=== PATIENT | female | born 1980 | race Caucasian/White ===

== ENCOUNTER 2020-06-11 08:25 | Emergency (ER) | payer BC ==
--- NOTE | 2020-06-11 08:34 | EDM.PDOC ---
ED HPI GENERAL MEDICAL PROBLEM - General Chief Complaint: Flank Pain Stated Complaint: LOW ABDOMINAL AND BACK PAIN Time Seen by Provider: 06/11/20 08:33 - History of Present Illness INITIAL COMMENTS - FREE TEXT/NARRATIVE: 39-year-old female presents the emergency room with abdominal pain. This pain started 45 to 50 minutes prior to arrival. It was very sudden onset she had some brief nausea with this but no vomiting. It is strictly on the right side started out in her back moved into her abdomen now radiating into her groin. She denies any fevers or chills. No problems with constipation or diarrhea. She has had a cholecystectomy and a tummy tuck in the past. She denies knowing she is she has a Mirena and her has had a vasectomy. Right Flank Pain Score (Numeric/FACES): 8 - Related Data Allergies Allergy/AdvReac Type Severity Reaction Status Date / Time No Known Allergies Allergy Verified 06/11/20 08:33 Home Meds: Home Meds Phentermine HCl 1 tab PO DAILY 09/17/19 [History] levonorgestreL [Mirena] 1 device VAG ONETIME 09/17/19 [History] L.acidoph,Paracasei, B.lactis [Probiotic] 1 cap PO DAILY 06/11/20 [History] Multivitamin [Multivitamins] 1 cap PO DAILY 06/11/20 [History] cephALEXin [Cephalexin] 500 mg PO Q8H #20 capsule 06/11/20 [Rx] Past Medical History HEENT History: Reports: None Cardiovascular History: Reports: None Respiratory History: Reports: None Gastrointestinal History: Reports: Other (See Below) Other Gastrointestinal History: occasional heartburn Genitourinary History: Reports: None Musculoskeletal History: Reports: Fracture Other Musculoskeletal History: hx fx ankle Neurological History: Reports: Migraines, Other (See Below) Other Neuro History: migraines in the past Psychiatric History: Reports: None Endocrine/Metabolic History: Reports: Obesity/BMI 30+ Hematologic History: Reports: None Immunologic History: Reports: None Oncologic (Cancer) History: Reports: None Dermatologic History: Reports: None - Past Surgical History Head Surgeries/Procedures: Reports: None HEENT Surgical History: Reports: None Cardiovascular Surgical History: Reports: None Respiratory Surgical History: Reports: None GI Surgical History: Reports: Cholecystectomy Female Surgical History: Reports: Breast Reduction Endocrine Surgical History: Reports: None Neurological Surgical History: Reports: None Musculoskeletal Surgical History: Reports: None Oncologic Surgical History: Reports: None Dermatological Surgical History: Reports: Plastic Surgical Reconstruction/Repair ED ROS GENERAL - Review of Systems Review Of Systems: See Below Constitutional: Reports: No Symptoms HEENT: Reports: No Symptoms Respiratory: Reports: No Symptoms Cardiovascular: Reports: No Symptoms Endocrine: Reports: No Symptoms GI/Abdominal: Reports: Abdominal Pain, Nausea. Denies: Constipation, Diarrhea, Vomiting : Reports: Flank Pain. Denies: Frequency, Hematuria, Urgency, Urinary Retention Musculoskeletal: Reports: Back Pain (Associated with this present illness) Neurological: Reports: No Symptoms ED EXAM, GI/ABD - Physical Exam Exam: See Below Exam Limited By: No Limitations General Appearance: Moderate Distress (From pain) Head: Atraumatic, Normocephalic Neck: Normal Inspection, Supple, Non-Tender, Full Range of Motion Respiratory/Chest: No Respiratory Distress, Lungs Clear, Normal Breath Sounds Cardiovascular: Regular Rate, Rhythm, No Edema, No Murmur GI/Abdominal Exam: Normal Bowel Sounds, Other (No left-sided abdominal discomfort no rebound or guarding palpation on the right side does not make the pain any worse but she has significant right sided mid to lower abdominal pain at this point.) Back Exam: Normal Inspection. No: CVA Tenderness (L), CVA Tenderness (R) Neurological: Alert, Oriented, Normal Cognition Course - Vital Signs Last Recorded V/S: Last Vital Signs Temp 36.2 C 06/11/20 08:30 Pulse 82 06/11/20 08:30 Resp 18 06/11/20 08:30 BP 139/91 H 06/11/20 08:30 Pulse Ox 99 06/11/20 08:30 - Orders/Labs/Meds Orders: Active Orders 24 hr Category Date Time Status CALCULI, URINARY Stat Lab 06/11/20 11:44 Ordered CULTURE URINE [RM] Stat Lab 06/11/20 08:30 Received Lactated Ringers [Ringers, Lactated] 1,000 ml Med 06/11/20 09:00 Active IV ASDIRECTED Medication Orders Lactated Ringer's (Ringers, Lactated) 1,000 mls @ 125 mls/hr IV ASDIRECTED JOSE Last Admin: 06/11/20 08:53 Dose: 125 mls/hr Documented by: DAVID Labs: Laboratory Tests 06/11/20 06/11/20 06/11/20 Range/Units 08:30 08:43 08:43 WBC 8.02 (3.98-10.04) K/mm3 RBC 5.19 (3.98-5.22) M/mm3 Hgb 15.5 (11.2-15.7) gm/dl Hct 45.3 H (34.1-44.9) % MCV 87.3 (79.4-94.8) fl MCH 29.9 (25.6-32.2) pg MCHC 34.2 (32.2-35.5) g/dl RDW Std Deviation 41.8 (36.4-46.3) fL Plt Count 386 H (182-369) K/mm3 MPV 9.7 (9.4-12.3) fl Neut % (Auto) 57.1 (34.0-71.1) % Lymph % (Auto) 29.1 (19.3-51.7) % [place] % (Auto) 6.5 (4.7-12.5) % Eos % (Auto) 6.0 H (0.7-5.8) Baso % (Auto) 1.2 (0.1-1.2) % Neut # (Auto) 4.58 (1.56-6.13) K/mm3 Lymph # (Auto) 2.33 (1.18-3.74) K/mm3 [place] # (Auto) 0.52 H (0.24-0.36) K/mm3 Eos # (Auto) 0.48 H (0.04-0.36) K/mm3 Baso # (Auto) 0.10 H (0.01-0.08) K/mm3 Sodium 137 (136-145) mEq/L Potassium 3.8 (3.5-5.1) mEq/L Chloride 101 (98-107) mEq/L Carbon Dioxide 24 (21-32) mEq/L Anion Gap 15.8 H (5-15) BUN 13 (7-18) mg/dL Creatinine 1.1 H (0.55-1.02) mg/dL Est Cr Clr Drug Dosing 53.77 mL/min Estimated GFR (MDRD) 55 (>60) mL/min BUN/Creatinine Ratio 11.8 L (14-18) Glucose 112 H (74-106) mg/dL Calcium 9.2 (8.5-10.1) mg/dL Total Bilirubin 0.9 (0.2-1.0) mg/dL AST 24 (15-37) U/L ALT 41 (14-59) U/L Alkaline Phosphatase 56 (46-116) U/L Total Protein 8.1 (6.4-8.2) g/dl Albumin 4.3 (3.4-5.0) g/dl Globulin 3.8 gm/dL Albumin/Globulin Ratio 1.1 (1-2) HCG, Qual (NEGATIVE) Urine Color Yellow (Yellow) Urine Appearance Clear (Clear) Urine pH 5.5 (5.0-8.0) Ur Specific [place] > or = 1.030 (1.005-1.030) Urine Protein 1+ H (Negative) Urine Glucose (UA) Negative (Negative) Urine Ketones 1+ H (Negative) Urine Occult Blood 2+ H (Negative) Urine Nitrite Negative (Negative) Urine Bilirubin 1+ H (Negative) Urine Urobilinogen 1.0 (0.2-1.0) Ur Leukocyte Esterase 1+ H (Negative) Urine RBC 5-10 H (0-5) /hpf Urine WBC 10-20 H (0-5) /hpf Ur Squamous Epith Cells 5-10 H (0-5) /hpf Urine Bacteria Many H (FEW) /hpf Urine Mucus Few (FEW) /hpf 06/11/20 06/11/20 Range/Units 08:43 10:09 WBC (3.98-10.04) K/mm3 RBC (3.98-5.22) M/mm3 Hgb (11.2-15.7) gm/dl Hct (34.1-44.9) % MCV (79.4-94.8) fl MCH (25.6-32.2) pg MCHC (32.2-35.5) g/dl RDW Std Deviation (36.4-46.3) fL Plt Count (182-369) K/mm3 MPV (9.4-12.3) fl Neut % (Auto) (34.0-71.1) % Lymph % (Auto) (19.3-51.7) % [place] % (Auto) (4.7-12.5) % Eos % (Auto) (0.7-5.8) Baso % (Auto) (0.1-1.2) % Neut # (Auto) (1.56-6.13) K/mm3 Lymph # (Auto) (1.18-3.74) K/mm3 [place] # (Auto) (0.24-0.36) K/mm3 Eos # (Auto) (0.04-0.36) K/mm3 Baso # (Auto) (0.01-0.08) K/mm3 Sodium (136-145) mEq/L Potassium (3.5-5.1) mEq/L Chloride (98-107) mEq/L Carbon Dioxide (21-32) mEq/L Anion Gap (5-15) BUN (7-18) mg/dL Creatinine (0.55-1.02) mg/dL Est Cr Clr Drug Dosing mL/min Estimated GFR (MDRD) (>60) mL/min BUN/Creatinine Ratio (14-18) Glucose (74-106) mg/dL Calcium (8.5-10.1) mg/dL Total Bilirubin (0.2-1.0) mg/dL AST (15-37) U/L ALT (14-59) U/L Alkaline Phosphatase (46-116) U/L Total Protein (6.4-8.2) g/dl Albumin (3.4-5.0) g/dl Globulin gm/dL Albumin/Globulin Ratio (1-2) HCG, Qual Negative (NEGATIVE) Urine Color Yellow (Yellow) Urine Appearance Clear (Clear) Urine pH 6.0 (5.0-8.0) Ur Specific [place] 1.015 (1.005-1.030) Urine Protein Negative (Negative) Urine Glucose (UA) Negative (Negative) Urine Ketones Trace H (Negative) Urine Occult Blood 3+ H (Negative) Urine Nitrite Negative (Negative) Urine Bilirubin Negative (Negative) Urine Urobilinogen 1.0 (0.2-1.0) Ur Leukocyte Esterase Trace H (Negative) Urine RBC 30-40 H (0-5) /hpf Urine WBC 10-20 H (0-5) /hpf Ur Squamous Epith Cells 5-10 H (0-5) /hpf Urine Bacteria Moderate H (FEW) /hpf Urine Mucus Few (FEW) /hpf Meds: Medications Generic Name Dose Route Start Last Admin Trade Name Marc PRN Reason Stop Dose Admin Lactated Ringer's 1,000 mls @ 125 mls/hr 06/11/20 09:00 06/11/20 08:53 Ringers, Lactated IV 125 mls/hr ASDIRECTED JOSE Administration Discontinued Medications Generic Name Dose Route Start Last Admin Trade Name Marc PRN Reason Stop Dose Admin Fentanyl 100 mcg 06/11/20 08:47 06/11/20 09:57 Sublimaze IVPUSH 06/11/20 08:48 50 mcg ONETIME ONE Administration Ondansetron HCl 4 mg 06/11/20 08:47 06/11/20 08:52 Zofran IVPUSH 06/11/20 08:48 4 mg ONETIME ONE Administration - Re-Assessments/Exams Free Text/Narrative Re-Assessment/Exam: 06/11/20 09:57 Mildly dehydrated on labs. However we will not bolus fluids at this time as this might make the pain worse and that we will advise her to drink lots of fluids as an outpatient. Urinalysis was contaminated we will recheck it however it is possibly suggestive of a kidney stone with more blood in there than one would expect. We will try and obtain a second specimen to ensure no infection cath if needed. She is getting ready to go over for abdominal pelvic CT without contrast. She is doing well with 50 mcg of fentanyl however this is starting to wear off and we will repeat it before going to CT. 06/11/20 12:33 Patient has done well here in the emergency room we did need to check a second urine and she passed a stone with this, a little over 2 mm in its largest diameter. Patient could very well have an infectious process going on as well she be started on Keflex. She does not think she needs anything for pain at this point. Departure - Departure Time of Disposition: 12:36 Disposition: Home, Self-Care 01 Clinical Impression: Kidney stone on right side - Discharge Information Referrals: Agnes Solis [employer] [Primary Care Provider] - Forms: ED Department Discharge Additional Instructions: Return to the emergency room with any questions problems or worsening symptoms. You have been started on antibiotic Keflex, or cephalexin, 500 mg take 1 3 times a day Follow-up with your regular healthcare provider early this next week for recheck. Sepsis Event Note (ED) - Focused Exam Vital Signs: Vital Signs Temp Pulse Resp BP Pulse Ox 06/11/20 08:30 36.2 C 82 18 139/91 H 99 - My Orders Last 24 Hours: My Active Orders 06/11/20 08:30 CULTURE URINE [RM] Stat 06/11/20 09:00 Lactated Ringers [Ringers, Lactated] 1,000 ml IV ASDIRECTED 06/11/20 11:44 CALCULI, URINARY Stat - Assessment/Plan Last 24 Hours: My Active Orders 06/11/20 08:30 CULTURE URINE [RM] Stat 06/11/20 09:00 Lactated Ringers [Ringers, Lactated] 1,000 ml IV ASDIRECTED 06/11/20 11:44 CALCULI, URINARY Stat
[2020-06-11] MEDS ORDERED: Ondansetron 4 MG/2 ML SDV IVPUSH ONE (08:47)
[2020-06-11] MEDS: fentaNYL 100 MCG/2 ML SDV IVPUSH ONE ×2 (08:52→09:57)
[2020-06-11] MEDS ORDERED: Lactated Ringers 1,000 ML IV SCH (09:00)
--- NOTE | 2020-06-11 10:52 | CT ---
CT abdomen and pelvis Technique: Multiple axial sections were obtained from above the dome of the diaphragm inferiorly through the pubic symphysis. Intravenous contrast was not utilized. Findings: Kidneys show no abnormal calcifications. No ureteral dilatation or ureteral stone is seen. Visualized lung bases show nothing acute. Noncontrast appearance of the liver shows no discrete abnormality. Surgical clips are noted from prior cholecystectomy. Spleen appears within normal limits. Adrenal glands show no nodule. Pancreas shows no discrete abnormality. Aorta shows no aneurysm. No retroperitoneal adenopathy or mesenteric abnormalities are seen. Appendix is seen which is normal. No pelvic mass or adenopathy is seen. IUD is present within the uterus. Cyst is noted within the right ovary measuring 3.0 cm. No free fluid or inflammatory change is seen. No bowel dilatation is appreciated. 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 No acute osseous finding is seen. Impression: 1. No renal calculi, ureteral dilatation or ureteral stone is seen. 2. IUD is noted within the uterus. 3. 3.0 cm cyst within the right ovary. 4. Other findings which are felt to be chronic. Nothing acute is seen. Diagnostic code #2 This report was dictated in MDT
[2020-06-11] MEDS ORDERED: Cephalexin 500 MG Cap PO ONE (12:35)
== END 2020-06-11 12:58 | disposition home or self-care (01) ==
LOC: JD.ED 08:25
DX: N20.0 Calculus of kidney (principal); E66.9 Obesity, unspecified; Z68.34 Body mass index [BMI] 34.0-34.9, adult; Z79.899 Other long term (current) drug therapy
CPT/HCPCS: 36415; 74176; 80053; 81001; 82365; 84703; 85025; 87086; 96361; 96374; 96375; 99284; A9270; J2405; J3010; J7120; 99283